=== PATIENT | male | born 1985 | race Caucasian/White ===

== ENCOUNTER 2016-07-13 10:30 | Emergency (ER) | payer OTHER ==
[~2016-07-13] VITALS: Ht 177.8 cm; Wt 74.8 kg
--- NOTE | 2016-07-13 11:39 | REP ---
RIGHT HAND SERIES: Four views of the right hand performed. Tiny calcific density is seen dorsal to the base of the 5th metacarpal and adjacent hamate bone. This could represent a small avulsion fracture. Age is indeterminate. There is no other evidence of acute fracture or dislocation. IMPRESSION: Possible tiny avulsion fracture dorsal to the base of the 5th metacarpal and hamate bone. This could be old. Signed by Rk Cali MD 07/13/2016 12:30 P
[2016-07-13] MEDS ORDERED: TYLE325T5 PO (12:05)
[2016-07-13] MEDS ORDERED: IBUP600T26 PO (12:05)
[2016-07-13 12:07] VITALS: BP 117/79
== END 2016-07-13 12:27 | disposition home or self-care (01) ==
LOC: M ED 11:37
DX: S62.141A Displaced fracture of body of hamate [unciform] bone, right wrist, initial encounter for closed fracture (principal); W19.XXXA Unspecified fall, initial encounter; Y92.89 Other specified places as the place of occurrence of the external cause; Y93.89 Activity, other specified; Y99.8 Other external cause status; R51 Headache; F41.9 Anxiety disorder, unspecified; F32.9 Major depressive disorder, single episode, unspecified

== ENCOUNTER 2016-12-27 09:18 | Emergency (ER) | payer MEDICAID, OTHER ==
[~2016-12-27] VITALS: Ht 177.8 cm; Wt 77.3 kg
[~2016-12-27 09:18] MED LIST: IBUP-1022 PO; TYLE325T5 PO
--- NOTE | 2016-12-27 10:25 | REP ---
LEFT KNEE, FIVE VIEWS: HISTORY: Trauma. There is no acute fracture or dislocation. The joint spaces are normal in appearance. IMPRESSION: There is no acute fracture or dislocation. Signed by Robert Hobbs MD 12/27/2016 10:33 A
[2016-12-27 10:39] VITALS: BP 134/86
== END 2016-12-27 10:40 | disposition home or self-care (01) ==
LOC: M ED 09:18
DX: S83.92XA Sprain of unspecified site of left knee, initial encounter (principal); X50.0XXA Overexertion from strenuous movement or load, initial encounter; Y92.018 Other place in single-family (private) house as the place of occurrence of the external cause; Y93.55 Activity, bike riding; Y99.8 Other external cause status; F33.9 Major depressive disorder, recurrent, unspecified; F17.210 Nicotine dependence, cigarettes, uncomplicated

== ENCOUNTER → 2018-03-13 | Outpatient (CLI) | payer OTHER | LOC: M RAD 17:35 | DX: N50.3 Cyst of epididymis (principal); I86.1 Scrotal varices | CPT/HCPCS: 76870 ==

== ENCOUNTER 2020-02-09 15:11 | Emergency (ER) | payer OTHER ==
[~2020-02-09] VITALS: Ht 177.8 cm; Wt 82.9 kg
[2020-02-09 15:11] VITALS: BP 108/59
[2020-02-09] MEDS ORDERED: ESCI10TA2 PO (15:23)
[2020-02-09] MEDS ORDERED: LAMO25TA4 PO (15:23)
[2020-02-09] MEDS ORDERED: TRAZ1TAB14 PO (15:23)
[2020-02-09] MEDS ORDERED: HYDR50CA2 PO (15:23)
[2020-02-09] MEDS ORDERED: GABA-843 PO (15:23)
[2020-02-09] MEDS ORDERED: ALBUTEROL 90 MCG/ACT 8GM HFA INHALER INH ONE (15:45)
[2020-02-09] MEDS ORDERED: DOXY100C37 PO (15:50)
[2020-02-09] MEDS ORDERED: VENTAER INH (15:50)
[2020-02-09] MEDS ORDERED: BENZ200C70 PO (15:50)
[2020-02-09] MEDS ORDERED: PRED20TA PO (16:10)
[2020-02-09] MEDS ORDERED: predniSONE 20 MG TAB PO ONE (16:15)
== END 2020-02-09 16:21 | disposition home or self-care (01) ==
LOC: M ED 15:11
DX: J20.9 Acute bronchitis, unspecified (principal); F17.200 Nicotine dependence, unspecified, uncomplicated; G43.909 Migraine, unspecified, not intractable, without status migrainosus; F41.9 Anxiety disorder, unspecified; Z88.4 Allergy status to anesthetic agent; Z79.51 Long term (current) use of inhaled steroids; Z79.899 Other long term (current) drug therapy

== ENCOUNTER 2020-07-19 19:42 | Emergency (ER) | payer OTHER ==
[~2020-07-19] VITALS: Ht 177.8 cm; Wt 68.2 kg
[~2020-07-19 19:42] MED LIST changes: +BENZ200C70 PO; +DOXY100C37 PO; +ESCI10TA16 PO; +GABA-282 PO; +HYDR50CA2 PO; +LAMO25TA4 PO; +PRED20TA PO; +TRAZ1TAB14 PO; +VENTAER INH
[2020-07-19] MEDS ORDERED: LAMO100T3 PO (20:04)
[2020-07-19] MEDS ORDERED: LEXA1TAB2 PO (20:04)
[2020-07-19 20:20] LABS: HEMATOCRIT 52.9 % (42.0-52.0); HEMOGLOBIN 17.7 g/dl (13.5-17.5); MEAN CORPUSCULAR HEMOGLOBIN 30.7 pg (27.0-33.0); MEAN CORPUSCULAR HGB CONC 33.5 g/dl (32.0-36.5); MEAN CORPUSCULAR VOLUME 91.8 fl (80.0-96.0); PLATELET COUNT, AUTOMATED 292 10^3/uL (150-450); RED BLOOD COUNT 5.76 10^6/uL (4.30-6.10); WHITE BLOOD COUNT 11.6 10^3/uL (4.0-10.0)
[2020-07-19] MEDS ORDERED: LORazepam 2 MG TAB PO STA ×2 (20:43→22:33)
[2020-07-19 20:52] LABS: ACETAMINOPHEN LEVEL < 2.0 UG/ML (10.0-30.0); ALBUMIN 4.5 GM/DL (3.2-5.2); ALT/SGPT 37 U/L (12-78); BILIRUBIN,DIRECT < 0.1 MG/DL (0.0-0.2); BILIRUBIN,TOTAL 0.3 MG/DL (0.2-1.0); BLOOD UREA NITROGEN 9 MG/DL (7-18); CALCIUM LEVEL 8.9 MG/DL (8.5-10.1); CARBON DIOXIDE LEVEL 26 MEQ/L (21-32); CHLORIDE LEVEL 115 MEQ/L (98-107); CREATININE FOR GFR 1.09 MG/DL (0.70-1.30); ETHYL ALCOHOL (ETHANOL) 0.335 % (0.000-0.010); GLOMERULAR FILTRATION RATE > 60.0 (>60); GLUCOSE, FASTING 126 MG/DL (70-100); SALICYLATE LEVEL 4.1 MG/DL (5.0-30.0); SODIUM LEVEL 147 MEQ/L (136-145); TOTAL PROTEIN 8.2 GM/DL (6.4-8.2)
[2020-07-19 21:41] LABS: AMPHETAMINES LEVEL URINE NEGATIVE (NEGATIVE); BARBITURATES URINE NEGATIVE (NEGATIVE); BENZODIAZEPINES URINE NEGATIVE (NEGATIVE); CANNABINOIDS URINE POSITIVE (NEGATIVE); COCAINE METABOLITE URINE NEGATIVE (NEGATIVE); METHADONE URINE NEGATIVE (NEGATIVE); OPIATES URINE NEGATIVE (NEGATIVE); PHENCYCLIDINE URINE NEGATIVE (NEGATIVE)
[2020-07-19] MEDS ORDERED: traZODone 50 MG TAB PO ONE (22:00)
[2020-07-19] MEDS ORDERED: GABAPENTIN 300 MG CAP PO ONE (22:00)
[2020-07-19] MEDS ORDERED: lamoTRIgine 25MG TAB PO ONE (22:00)
[2020-07-19] MEDS ORDERED: LORazepam 2 MG/ML VIAL As Ordered ONE (22:46)
[2020-07-19] MEDS ORDERED: HALOPERIDOL 5MG/ML VIAL (J1630 PER 1) As Ordered ONE (22:47)
[2020-07-19] MEDS ORDERED: diphenhydrAMINE 50MG/ML VIAL (J1200) As Ordered ONE (22:47)
[2020-07-19] MEDS ORDERED: LORazepam 2 MG/ML VIAL IM STA (22:48)
[2020-07-19] MEDS ORDERED: diphenhydrAMINE 50MG/ML VIAL (J1200) IM STA (22:48)
[2020-07-19] MEDS ORDERED: HALOPERIDOL 5MG/ML VIAL (J1630 PER 1) IM STA (22:48)
[2020-07-20 09:06] VITALS: BP 125/67
== END 2020-07-20 09:14 | disposition home or self-care (01) ==
LOC: M ED 19:42
DX: F43.0 Acute stress reaction (principal); R45.850 Homicidal ideations; F10.129 Alcohol abuse with intoxication, unspecified; F17.200 Nicotine dependence, unspecified, uncomplicated; Z79.899 Other long term (current) drug therapy
CPT/HCPCS: 80048; 80076; 80143; 80307; 82077; 84443; 85027; 96372; 99285; J1200; J1630; J2060

== ENCOUNTER 2021-11-21 16:18 | Emergency (ER) | payer MEDICAID, OTHER ==
[~2021-11-21] VITALS: Ht 177.8 cm; Wt 84.5 kg
[~2021-11-21 16:18] MED LIST changes: +DOXY-443 PO; -DOXY100C37 PO; +LAMO100T3 PO; +LEXA1TAB2 PO
[2021-11-21] MEDS ORDERED: ARIP1TAB4 (16:31)
[2021-11-21] MEDS ORDERED: CLON2TAB7 (16:31)
[2021-11-21] MEDS ORDERED: QUET100T2 (16:31)
[2021-11-21] MEDS ORDERED: PRAZ1CAP (16:31)
[2021-11-21] MEDS ORDERED: KETOROLAC 30 MG/ML 1ML VIAL IM ONE (17:50)
[2021-11-21] MEDS ORDERED: diazePAM 5MG TABLET PO ONE (17:50)
[2021-11-21] MEDS ORDERED: METH-1165 PO (19:00)
[2021-11-21] MEDS ORDERED: KETO10TAB PO (19:00)
[2021-11-21 19:06] VITALS: BP 130/50
== END 2021-11-21 19:21 | disposition home or self-care (01) ==
LOC: M ED 16:18
DX: S39.012A Strain of muscle, fascia and tendon of lower back, initial encounter (principal); X50.0XXA Overexertion from strenuous movement or load, initial encounter; G43.909 Migraine, unspecified, not intractable, without status migrainosus; F31.9 Bipolar disorder, unspecified; F17.200 Nicotine dependence, unspecified, uncomplicated; Z88.4 Allergy status to anesthetic agent; Z79.899 Other long term (current) drug therapy; Z79.83 Long term (current) use of bisphosphonates; Y99.9 Unspecified external cause status; Y92.9 Unspecified place or not applicable; Y93.9 Activity, unspecified
CPT/HCPCS: 72131; 96372; 99283; J1885

== ENCOUNTER → 2021-12-05 | Outpatient (CLI) | payer OTHER ==
[~2021-12-05] MED LIST changes: +ARIP1TAB4; +CLON2TAB7; +KETO10TAB PO; +METH-1165 PO; +PRAZ1CAP; +QUET100T2
== END ==
LOC: M LABSMTC 10:46
PROVIDERS: ATTEND Anesthesiology
DX: Z01.812 Encounter for preprocedural laboratory examination (principal); Z20.822 Contact with and (suspected) exposure to COVID-19

== ENCOUNTER 2021-12-08 09:24 | Day surgery (SDC) | payer OTHER ==
[~2021-12-08] VITALS: Ht 177.8 cm; Wt 83.5 kg
[~2021-12-08 09:24] MED LIST changes: -ARIP1TAB4; +ARIP1TAB4 PO; +CLON1TAB17 PO; +LIDOCAINE 2% 100MG/5ML SDV (FOR ANES.) As Ordered ONE; +NS 1,000 ML IV ONE; -PRAZ1CAP; +PRAZ1CAP PO; +SERO150T2 PO; +propofoL 500 MG/50 ML VIAL As Ordered ONE
[2021-12-08] MEDS ORDERED: fentaNYL 100 MCG/2 ML INJECTION As Ordered ONE (10:10)
[2021-12-08 11:32] VITALS: BP 117/80
== END 2021-12-08 11:44 | disposition home or self-care (01) ==
LOC: M OPP 09:24
PROVIDERS: ATTEND Surgery
DX: K62.5 Hemorrhage of anus and rectum (principal); K62.89 Other specified diseases of anus and rectum; K62.1 Rectal polyp; K31.89 Other diseases of stomach and duodenum; K29.50 Unspecified chronic gastritis without bleeding; K22.10 Ulcer of esophagus without bleeding; K21.00 Gastro-esophageal reflux disease with esophagitis, without bleeding; F32.9 Major depressive disorder, single episode, unspecified; F41.9 Anxiety disorder, unspecified; F17.200 Nicotine dependence, unspecified, uncomplicated; Z88.4 Allergy status to anesthetic agent
CPT/HCPCS: 43239; 45380; 88305; J3010

== ENCOUNTER → 2022-11-30 | Outpatient (REF) | payer OTHER ==
[~2022-11-30] MED LIST changes: -LIDOCAINE 2% 100MG/5ML SDV (FOR ANES.) As Ordered ONE; -NS 1,000 ML IV ONE; -propofoL 500 MG/50 ML VIAL As Ordered ONE
[2022-11-30 17:16] LABS: BASO # 0.1 10^3/uL (0.0-0.2); BASO % 0.7 % (0.0-1.0); EOS # 0.5 10^3/uL (0.0-0.5); EOS % 5.4 % (0.0-3.0); HEMATOCRIT 50.4 % (42.0-52.0); HEMOGLOBIN 16.4 g/dl (13.5-17.5); LYMPH # 2.3 10^3/uL (1.5-5.0); LYMPH % 26.7 % (24.0-44.0); MEAN CORPUSCULAR HEMOGLOBIN 31.2 pg (27.0-33.0); MEAN CORPUSCULAR HGB CONC 32.5 g/dl (32.0-36.5); MEAN CORPUSCULAR VOLUME 95.8 fl (80.0-96.0); MONO # 0.9 10^3/uL (0.0-0.8); MONO % 10.8 % (2.0-8.0); NEUTROPHILS # 4.8 10^3/uL (1.5-8.5); NEUTROPHILS % 55.7 % (36.0-66.0); PLATELET COUNT, AUTOMATED 207 10^3/uL (150-450); RED BLOOD COUNT 5.26 10^6/uL (4.30-6.10); WHITE BLOOD COUNT 8.6 10^3/uL (4.0-10.0)
[2022-11-30 17:28] LABS: CHOLESTEROL RISK RATIO 5.45 (<5); HDL CHOLESTEROL 39.2 MG/DL (>40); NON-HDL-C 174.8 MG/DL
[2022-11-30 17:33] LABS: THYROID STIMULATING HORMONE 2.989 uIU/ML (0.55-4.78)
[2022-11-30 19:24] LABS: HEMOGLOBIN A1c 5.4 % (4.0-6.0)
== END ==
LOC: M LAB REF 16:52
PROVIDERS: ATTEND Physician Assistant
DX: R53.83 Other fatigue (principal); R68.82 Decreased libido; Z13.228 Encounter for screening for other metabolic disorders

== ENCOUNTER → 2023-01-10 | Outpatient (CLI) | payer OTHER | LOC: M WUC 12:23 | PROVIDERS: ATTEND Nurse Practitioner Family | DX: M54.32 Sciatica, left side (principal) ==

== ENCOUNTER 2024-08-05 07:50 | Emergency (ER) | payer MEDICARE, OTHER ==
[~2024-08-05] VITALS: Ht 177.8 cm; Wt 76.8 kg
[~2024-08-05 07:50] MED LIST changes: +DOXY-441 PO; -DOXY-443 PO; +GABA-1172 PO; -GABA-282 PO
[2024-08-05 07:55] VITALS: TEMP 97.5
[2024-08-05] MEDS ORDERED: LAMO25TA4 (07:59)
[2024-08-05] MEDS ORDERED: PRAZ2CAP (07:59)
[2024-08-05] MEDS ORDERED: ADDE12.5 PO (07:59)
[2024-08-05 11:52] VITALS: BP 106/63; O2SAT 100
[2024-08-05] MEDS ORDERED: KETO10TAB PO (12:19)
[2024-08-05] MEDS ORDERED: ONDA-282 PO (12:19)
[2024-08-05] MEDS: ONDANSETRON 4MG ORAL DISINTEGRATING TAB PO ONE (12:28)
[2024-08-05] MEDS: IBUPROFEN 800 MG TAB PO ONE (12:28)
== END 2024-08-05 12:31 | disposition home or self-care (01) ==
LOC: M ED 07:50
DX: S06.0X0A Concussion without loss of consciousness, initial encounter (principal); S00.93XA Contusion of unspecified part of head, initial encounter; S50.01XA Contusion of right elbow, initial encounter; W10.9XXA Fall (on) (from) unspecified stairs and steps, initial encounter; M41.86 Other forms of scoliosis, lumbar region; F31.9 Bipolar disorder, unspecified; Z79.899 Other long term (current) drug therapy; Z79.83 Long term (current) use of bisphosphonates; Z88.8 Allergy status to other drugs, medicaments and biological substances; Y92.009 Unspecified place in unspecified non-institutional (private) residence as the place of occurrence of the external cause; Y93.89 Activity, other specified; Y99.9 Unspecified external cause status